=== PATIENT | female | born 1980 | race Caucasian/White ===

== ENCOUNTER 2023-12-16 19:37 | Emergency (ER) | payer MEDICAID ==
[~2023-12-16] VITALS: Ht 167.6 cm; Wt 86.2 kg
[2023-12-16 20:07] VITALS: BP 125/76; PULSE 104; RESP 18; TEMP 98; O2SAT 99
[2023-12-16] MEDS: KETOROLAC 30 MG/ML VIAL IM ONE (21:13)
[2023-12-16 21:20] LABS: APPEARANCE,URINE CLEAR (CLEAR); BILIRUBIN,URINE NEGATIVE (NEGATIVE); BLOOD, URINE NEGATIVE (NEGATIVE); COLOR,URINE YELLOW (YELLOW); LEUKOCYTE ESTERASE ,URINE NEGATIVE (NEGATIVE); NITRITE, URINE NEGATIVE (NEGATIVE); PROTEIN,URINE NEGATIVE (NEGATIVE); UGLUCOSE NEGATIVE (NEGATIVE); UROBILINOGEN,URINE 0.2 EU/dL (0.2 - 1)
[2023-12-16] MEDS ORDERED: ACET500T99 PO (21:57)
[2023-12-16 22:00] VITALS: BP 120/80; PULSE 79; RESP 16; TEMP 98; O2SAT 98
== END 2023-12-16 22:00 | disposition home or self-care (01) ==
LOC: MED 19:37
DX: R51.9 Headache, unspecified (principal); Z79.899 Other long term (current) drug therapy
CPT/HCPCS: 81003; 81025; 96372; 99283; J1885